=== PATIENT | female | born 1965 | race Caucasian/White ===

== ENCOUNTER 2019-02-09 15:52 | Emergency (ER) | payer SELFPAY ==
[~2019-02-09] VITALS: Ht 154.9 cm; Wt 72.0 kg
[2019-02-09 16:05] VITALS: BP 117/68
[2019-02-09] MEDS ORDERED: KETOROLAC 30MG/ML VIAL IM ONE (20:15)
== END 2019-02-09 21:25 | disposition home or self-care (01) ==
LOC: ER 15:52
DX: S40.022A Contusion of left upper arm, initial encounter (principal); M25.512 Pain in left shoulder; R07.89 Other chest pain; V49.88XA Car occupant (driver) (passenger) injured in other specified transport accidents, initial encounter; Y93.89 Activity, other specified; Y92.89 Other specified places as the place of occurrence of the external cause; Y99.8 Other external cause status
CPT/HCPCS: 71046; 73030; 73070; 96372; 99283; J1885; Z7610